=== PATIENT | female | born 1960 | race Caucasian/White ===

== ENCOUNTER 2018-10-28 16:21 | Emergency (ER) | payer MEDICAID ==
[2018-10-28] MEDS ORDERED: HYDROMORPHONE HCL INJ/PF 2 MG/ML AMPULE IV ONE (17:14)
[2018-10-28] MEDS ORDERED: ONDANSETRON HCL INJ/PF 4 MG/2 ML SDV IV ONE (17:14)
--- NOTE | 2018-10-28 18:21 | RADIOLOGY REPORT (SQ) ---
EXAM DESCRIPTION: CT HEAD WITHOUT COMPLETED DATE/TIME: 10/28/2018 6:13 pm REASON FOR STUDY: fall COMPARISON: None. TECHNIQUE: Axial images acquired through the brain without intravenous contrast. Images reviewed wi th bone, brain and subdural windows. Images stored on PACS. All CT scanners at this facility use dose modulation, iterative reconstruction, and/or weight based d osing when appropriate to reduce radiation dose to as low as reasonably achievable (ALARA). [facility]: Dose Right [facility]: CareDose [facility]: Dose Right [facility]: Teradose 4D [facility]: Bioenvision RADIATION DOSE: CT Rad equipment meets quality standard of care and radiation dose reduction techniq ues were employed. CTDIvol: 53.2 mGy. DLP: 964 mGy-cm. mGy. LIMITATIONS: None. FINDINGS: VENTRICLES: Normal size and contour. CEREBRUM: No masses. No hemorrhage. No midline shift. No evidence for acute infarction. Normal gra y/white matter differentiation. No areas of low density in the white matter. CEREBELLUM: No masses. No hemorrhage. No alteration of density. No evidence for acute infarction. EXTRAAXIAL SPACES: No fluid collections. No masses. ORBITS AND GLOBE: No intra- or extraconal masses. Normal contour of globe without masses. CALVARIUM: No fracture. PARANASAL SINUSES: Chronic ethmoid and frontal sinus disease. SOFT TISSUES: No mass or hematoma. OTHER: No other significant finding. IMPRESSION: NORMAL BRAIN CT WITHOUT CONTRAST. EVIDENCE OF ACUTE STROKE: NO. COMMENT: Quality ID # 436: Final reports with documentation of one or more dose reduction techniques (e.g., Automated exposure control, adjustment of the mA and/or kV according to patient size, use of iterative reconstruction technique) TECHNICAL DOCUMENTATION: JOB ID: [id number] 1964 [employer]- All Rights Reserved Reading location - IP/workstation name: [email or web address]
--- NOTE | 2018-10-28 18:28 | RADIOLOGY REPORT (SQ) ---
EXAM DESCRIPTION: CT CERVICAL SPINE WITHOUT COMPLETED DATE/TIME: 10/28/2018 6:13 pm REASON FOR STUDY: fall COMPARISON: None. TECHNIQUE: Axial images acquired through the cervical spine without intravenous contrast. Images re viewed with lung, soft tissue and bone windows. Reconstructed coronal and sagittal MPR images review ed. Images stored on PACS. All CT scanners at this facility use dose modulation, iterative reconstruction, and/or weight based d osing when appropriate to reduce radiation dose to as low as reasonably achievable (ALARA). [facility]: Dose Right [facility]: CareDose [facility]: Dose Right [facility]: Teradose 4D [facility]: Smart Sci[employer] RADIATION DOSE: CT Rad equipment meets quality standard of care and radiation dose reduction techniq ues were employed. CTDIvol: 16.9 mGy. DLP: 357 mGy-cm. mGy. LIMITATIONS: None. FINDINGS: ALIGNMENT: Anatomic. MINERALIZATION: Normal. VERTEBRAL BODIES: No fractures or dislocation. DISCS: No significant disc disease. FACETS, LATERAL MASSES, POSTERIOR ELEMENTS: No fractures. No dislocation. No acute findings. HARDWARE: None in the spine. VISUALIZED RIBS: No fractures. LUNG APICES AND SOFT TISSUES: No significant or acute findings. OTHER: No other significant finding. IMPRESSION: NO ACUTE OR SIGNIFICANT FINDINGS IN THE CERVICAL SPINE. TECHNICAL DOCUMENTATION: JOB ID: [id number] Quality ID # [id number]: Final reports with documentation of one or more dose reduction techniques (e.g., Au tomated exposure control, adjustment of the mA and/or kV according to patient size, use of iterative reconstruction technique) 2010 [employer]- All Rights Reserved Reading location - IP/workstation name: [email or web address]
--- NOTE | 2018-10-28 18:31 | RADIOLOGY REPORT (SQ) ---
EXAM DESCRIPTION: CT LUMBAR SPINE WITHOUT COMPLETED DATE/TIME: 10/28/2018 6:13 pm REASON FOR STUDY: fall COMPARISON: None. TECHNIQUE: Axial images acquired through the lumbar spine without intravenous contrast. Images revi ewed with lung, soft tissue and bone windows. Reconstructed coronal and sagittal MPR images reviewed . All images stored on PACS. All CT scanners at this facility use dose modulation, iterative reconstruction, and/or weight based d osing when appropriate to reduce radiation dose to as low as reasonably achievable (ALARA). [facility]: Dose Right [facility]: CareDose [facility]: Dose Right [facility]: Teradose 4D [facility]: FlexEl RADIATION DOSE: mGy. LIMITATIONS: None. FINDINGS: SEGMENTATION: Normal. No transitional anatomy. ALIGNMENT: Normal. VERTEBRAL BODIES: No fractures. No dislocation. No acute findings. DISCS: Degenerative disc disease with reactive endplate changes L4-5. Spinal stenosis. PEDICLES, TRANSVERSE PROCESSES: No fractures. No dislocation. No acute findings. FACETS, POSTERIOR ELEMENTS: No fractures. No dislocation. No spinal stenosis. HARDWARE: None in the spine. VISUALIZED RIBS: No fractures. SOFT TISSUES: No significant or acute finding in adjacent soft tissues. OTHER: No other significant finding. IMPRESSION: Degenerative disc disease L4-5 with spinal stenosis. No acute findings. TECHNICAL DOCUMENTATION: JOB ID: [id number] Quality ID # 436: Final reports with documentation of one or more dose reduction techniques (e.g., Au tomated exposure control, adjustment of the mA and/or kV according to patient size, use of iterative reconstruction technique) 2010 [employer]- All Rights Reserved Reading location - IP/workstation name: [email or web address]
--- NOTE | 2018-10-28 18:33 | RADIOLOGY REPORT (SQ) ---
EXAM DESCRIPTION: CT CHEST WITHOUT COMPLETED DATE/TIME: 10/28/2018 6:13 pm REASON FOR STUDY: fall COMPARISON: None. TECHNIQUE: CT scan performed of the chest without intravenous contrast. Images reviewed with lung, soft tissue and bone windows. Reconstructed coronal and sagittal MPR images reviewed. All images st ored on PACS. All CT scanners at this facility use dose modulation, iterative reconstruction, and/or weight based d osing when appropriate to reduce radiation dose to as low as reasonably achievable (ALARA). [facility]: Dose Right [facility]: CareDose [facility]: Dose Right [facility]: Teradose 4D [facility]: Smart [employer] RADIATION DOSE: CT Rad equipment meets quality standard of care and radiation dose reduction techniq ues were employed. CTDIvol: 14.4 mGy. DLP: 579 mGy-cm. mGy. LIMITATIONS: No technical limitations. FINDINGS: LUNGS AND PLEURA: No masses, infiltrates, or pneumothorax. No pleural effusions or pleura l calcifications. HILAR AND MEDIASTINAL STRUCTURES: No identified masses or abnormal nodes. No obvious aneurysm. HEART AND VASCULAR STRUCTURES: No aneurysm. No pericardial effusion. UPPER ABDOMEN: No significant findings. Limited exam. THYROID AND OTHER SOFT TISSUES: No masses. No adenopathy. BONES: No significant finding. HARDWARE: None in the chest. OTHER: No other significant findings. IMPRESSION: NO SIGNIFICANT FINDING ON NON-CONTRASTED CHEST CT. TECHNICAL DOCUMENTATION: JOB ID: [id number] Quality ID # 436: Final reports with documentation of one or more dose reduction techniques (e.g., Au tomated exposure control, adjustment of the mA and/or kV according to patient size, use of iterative reconstruction technique) 2010 [employer]- All Rights Reserved Reading location - IP/workstation name: [email or web address]
--- NOTE | 2018-10-28 18:34 | RADIOLOGY REPORT (SQ) ---
EXAM DESCRIPTION: KNEE LEFT 3 VIEWS COMPLETED DATE/TIME: 10/28/2018 6:25 pm REASON FOR STUDY: fall COMPARISON: None. NUMBER OF VIEWS: Three views. TECHNIQUE: AP, lateral, and sunrise patella radiographic images acquired of the left knee. LIMITATIONS: None. FINDINGS: MINERALIZATION: Normal. BONES: No acute fracture. Knee replacement. JOINT: No effusion. SOFT TISSUES: No soft tissue swelling. No radio-opaque foreign body. OTHER: No other significant finding. IMPRESSION: No acute fracture. Knee replacement. TECHNICAL DOCUMENTATION: JOB ID: [id number] [employer]- All Rights Reserved Reading location - IP/workstation name: [email or web address]
--- NOTE | 2018-10-28 18:35 | RADIOLOGY REPORT (SQ) ---
EXAM DESCRIPTION: SHOULDER LEFT 2 OR MORE VIEWS COMPLETED DATE/TIME: 10/28/2018 6:25 pm REASON FOR STUDY: fall COMPARISON: None. NUMBER OF VIEWS: Three views. TECHNIQUE: Internal rotation, external rotation, and Y view images acquired of the left shoulder. LIMITATIONS: None. FINDINGS: MINERALIZATION: Osteopenia. BONES: No acute fracture or dislocation. No worrisome bone lesions. JOINTS: No dislocation. VISUALIZED LUNGS AND RIBS: No pneumothorax. No rib fracture. SOFT TISSUES: No radiopaque foreign body. OTHER: No other significant finding. IMPRESSION: NEGATIVE STUDY OF THE LEFT SHOULDER. NO RADIOGRAPHIC EVIDENCE OF ACUTE INJURY. TECHNICAL DOCUMENTATION: JOB ID: [id number] [employer]- All Rights Reserved Reading location - IP/workstation name: [email or web address]
--- NOTE | 2018-10-28 18:36 | RADIOLOGY REPORT (SQ) ---
EXAM DESCRIPTION: HIP LEFT AP/LATERAL COMPLETED DATE/TIME: 10/28/2018 6:25 pm REASON FOR STUDY: fall COMPARISON: None. NUMBER OF VIEWS: Two views. TECHNIQUE: AP pelvis and additional frog-leg view of the left hip. LIMITATIONS: None. FINDINGS: MINERALIZATION: Osteopenia. LEFT HIP: Degenerative changes. No acute fracture. RIGHT HIP: Hip replacement. PUBIS AND ISCHIUM: No fracture. PELVIS: No fracture. SACRUM: No fracture or dislocation. No worrisome bone lesions. LOWER LUMBAR SPINE: Degenerative disc disease. SOFT TISSUES: No findings. OTHER: No other significant finding. IMPRESSION: No acute findings. TECHNICAL DOCUMENTATION: JOB ID: [id number] [employer]- All Rights Reserved Reading location - IP/workstation name: [email or web address]
--- NOTE | 2018-10-28 19:03 | ER Document Report ---
ED Fall - General Chief Complaint: Fall Injury Stated Complaint: FALL/LEFT SIDE BODY PAIN Time Seen by Provider: 10/28/18 16:49 Mode of Arrival: Ambulatory Information source: Patient, Relative Notes: Patient is a well-nourished well-developed 58-year-old female comes emergency room after sustaining a fall on . Patient was down from [place] helping her son move into his new handicap apartment and she was helping offload boxes from a trailer and as she went to the back and the front and came up and she went to the ground which was about 4 feet above and landed on her left side of her body. Part of her fall was broken by her son's friend although she is unsure if she has had loss of consciousness as are the 2 witnesses there. Patient is complaining of headache neck pain left shoulder pain mid thoracic and lumbar tenderness and pain difficulty walking left hip pain and left knee pain. Patient states that she has a high tolerance to pain but she is getting more and more difficult to walk and to go from sitting to standing. She is also having a hard time using her left arm because of the discomfort and pain. She has a history of having bilateral knee replacements and a right hip replacement. She states as son also states that when she broke her right hip she worked for 19 days on it before they realized it was fractured. Then she had to get into the pain and have it fixed. So as stated patient cannot deny loss of consciousness and increasing headache. She has a history of hypertension A. fib congestive heart failure. She does not take any blood thinners. She continues to smoke a half a pack cigarettes a day. TRAVEL OUTSIDE OF THE [place] IN LAST 30 DAYS: No - HPI Occurred: Last week Where: Home Context: Fell from height Associated symptoms: Lost consciousness, Dazed/confused, Difficulty breathing, Difficulty walking Location of injury/pain: Hip, Knee, Neck, Shoulder, Trunk, Upper extremity, Lower extremity Quality of pain: Achy, Cramping, Pressure, Sharp, Throbbing Severity: Moderate Pain Level: 3 - Related data Allergies/Adverse Reactions: bupropion [From Wellbutrin] Allergy (Verified 10/28/18 16:26) meperidine [From Demerol] Allergy (Verified 10/28/18 16:26) morphine Allergy (Verified 10/28/18 16:26) Past Medical History - General Information source: Patient, Relative - Social History Smoking Status: Current Every Day Smoker Cigarette use (# per day): Yes - 1/4-1/2 pack a day Chew tobacco use (# tins/day): No Smoking Education Provided: Yes Frequency of alcohol use: None Drug Abuse: None Lives with: Family Family History: Reviewed & Not Pertinent Patient has suicidal ideation: No Patient has homicidal ideation: No - Past Medical History Cardiac Medical History: Reports: Hx Atrial Fibrillation, Hx Congestive Heart Failure, Hx Hypercholesterolemia, Hx Hypertension Renal/ Medical History: Denies: Hx Peritoneal Dialysis GI Medical History: Reports: Hx Gastroesophageal Reflux Disease Past Surgical History: Reports: Hx Appendectomy, Hx Cardiac Catheterization, Hx Cholecystectomy, Hx Hysterectomy, Hx Orthopedic Surgery - bilateral knee replacements, Rt hip, Hx Tonsillectomy Review of Systems - Review of Systems Constitutional: No symptoms reported EENT: No symptoms reported Cardiovascular: No symptoms reported Respiratory: See HPI, Hurts to breathe, Short of breath Gastrointestinal: No symptoms reported Genitourinary: No symptoms reported Female Genitourinary: No symptoms reported Musculoskeletal: No symptoms reported, See HPI, Back pain, Joint pain, Joint swelling, Muscle pain, Neck pain Skin: No symptoms reported Hematologic/Lymphatic: No symptoms reported Neurological/Psychological: Lost consciousness -: Yes All other systems reviewed and negative Physical Exam - Vital signs Vitals: Temp Pulse Resp BP Pulse Ox 97.9 F 80 16 123/67 100 10/28/18 16:28 10/28/18 16:28 10/28/18 16:28 10/28/18 16:28 10/28/18 16:28 Interpretation: Normal - Notes Notes: PHYSICAL EXAMINATION: GENERAL: Patient is a well-nourished well-developed 58-year-old female who is in no apparent distress but is not noticeable pain and discomfort. Every movement is calculated secondary to causing her discomfort and pain. HEAD: Atraumatic, normocephalic. Examination of the head does not show any signs of hematomas or abrasions Pupils equal round and reactive to light, extraocular movements intact, conjunctiva are normal. ENT: Nares patent, oropharynx clear without exudates. Moist mucous membranes. NECK: Examination patient's cervical spine shows she has decreased range of motion in all planes of. This is apparently due to discomfort and pain. She generally moves her neck from flexion to extension and gets almost a full range of motion. As far as rotation goes she has again slow motion to get to each side however she almost gets to full range of motion. Palpation of the cervical spine shows some moderate tenderness in the lower portion posteriorly. LUNGS: Breath sounds clear to auscultation bilaterally and equal. No wheezes rales or rhonchi. HEART: Irregular rate and rhythm without murmurs ABDOMEN: Soft, nontender, nondistended abdomen. No guarding, no rebound. No masses appreciated. Female : deferred Musculoskeletal: Examination of patient's left upper arm shows reproducible tenderness palpation on the anterior portion around the rotator cuff area. Patient is having difficulty raising the shoulder with active range of motion. With passive range of motion is much easier but still somewhat uncomfortable. She also has some notable spasms along the scapular border on the left side. Examination of the skin does not show any signs of abrasions or hematomas and limited amount of swelling if any. Although this is been 5 or 6 days ago. There does not appear to be any type of deformity. The clavicle also appears normal. There is some increased tenderness with some swelling around the AC joint area and very tender to palpate there. 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 She has good cap refill in the nails of that left hand. She has a good brachial pulse as well. The examination of the chest and back shows that she has reproducible tenderness mid thoracic to lower lumbar. Very tender to palpate very cautious with movement in the area. There also appear to be some enoc-vertebral spasms throughout the thoracic and lumbar area. Patient has decreased range of motion with flexion and will extension in that area. DTRs are limited secondary to her pain and discomfort in her having replaced knees. She states that she has had loss of feeling in the knees since the surgeries. She has good flexion extension at the ankles and feet. She is good dorsalis pedal pulses. The left groin is concerning for increased tenderness to palpation in the groin area. There is no shortening or outward or inward rotation of the leg on examination. She has a good femoral pulse. She has difficulty with bending at the knee which is a little new to her since the fall. Again she has good popliteal pulses in the area. The left rib area also is noted to be very tender to palpation. Increased tenderness and pain when deep inspiration is induced. NEUROLOGICAL: Normal speech, normal gait. Normal sensory, motor exams PSYCH: Normal mood, normal affect. SKIN: Warm, Dry, normal turgor, no rashes or lesions noted. Course - Vital Signs Vital signs: Temp Pulse Resp BP Pulse Ox 97.9 F 80 16 123/67 100 10/28/18 16:28 10/28/18 16:28 10/28/18 16:28 10/28/18 16:28 10/28/18 16:28 Procedures - Immobilization Left Knee Pre-Proc Neuro Vasc Exam: Normal Immobilizer type: Knee immobilizer, Sling Performed by: PCT Post-Proc Neuro Vasc Exam: Normal, Unchanged from pre-exam Alignment checked and good: Yes Notes: 10/28/18 19:57 Patient is agreed to use her walker at home and she will use knee immobilizer when ambulatory. She is in a sling in her arm only when she is sitting she will have to use it with a walker. Discharge - Discharge Clinical Impression: Internal derangement of left knee, Lumbosacral contusion Contusion of left shoulder Qualifiers: Encounter type: initial encounter Qualified Code(s): S40.012A - Contusion of left shoulder, initial encounter Left shoulder strain Qualifiers: Encounter type: initial encounter Qualified Code(s): S46.912A - Strain of unspecified muscle, fascia and tendon at shoulder and upper arm level, left arm , initial encounter Strain of left knee Qualifiers: Encounter type: initial encounter Qualified Code(s): S86.912A - Strain of unspecified muscle(s) and tendon(s) at lower leg level, left leg, initial encounter Concussion Qualifiers: Encounter type: initial encounter Loss of consciousness presence/duration: without LOC Qualified Code(s): S06.0X0A - Concussion without loss of consciousness, initial encounter Strain of left hip Qualifiers: Encounter type: initial encounter Qualified Code(s): S76.012A - Strain of muscle, fascia and tendon of left hip, initial encounter Thoracic myofascial strain Qualifiers: Encounter type: initial encounter Qualified Code(s): S29.019A - Strain of muscle and tendon of unspecified wall of thorax, initial encounter Condition: Stable Disposition: HOME, SELF-CARE Instructions: Concussion ([facility]), Post-Concussion Syndrome ([facility]), Shoulder Injury ([facility]), Suspected Internal Knee Injury ([facility]), Sprained Knee ([facility]) Additional Instructions: As we discussed you are going to hurt for the next several days because the type fall the sustained. All of your diagnostic CTs and x-rays were negative for any acute findings of fractures. This however does not exclude the possibilities of ligament tears and strains like rotator cuff and need internal derangement and hip strain or tendon malfunction. As we talked he can continue with moist heat or ice or alternating the 2. We will put you on Percocet where you can take half a pill to 1 full pill to 1-1/[address]. [address] you on some meloxicam once a day and when you have time contact your physician to get more clearance on they approve it. This is have the least side effects and possible causes of bleeding than anything else besides Tylenol. I will place you on a muscle relaxer as well. Should you have any concerns or problems or you cannot get into any of the clinics return to ER for recheck. Prescriptions: Cyclobenzaprine HCl [Flexeril 10 mg Tablet] 10 mg PO TIDP PRN #20 tablet PRN Reason: Meloxicam [Mobic] 7.5 mg PO ASDIR PRN #20 tablet PRN Reason: Oxycodone HCl/Acetaminophen [Percocet 5-325 mg Tablet] 1 - 2 tab PO ASDIR PRN # 15 tablet PRN Reason: Referrals: [facility] [NO LOCAL MD] - Follow up as needed MARK SNOW DO [ACTIVE STAFF] - Follow up as needed
[2018-10-28 20:25] VITALS: BP 125/74
== END 2018-10-28 20:40 | disposition home or self-care (01) ==
LOC: ER 16:21
DX: S06.0X0A Concussion without loss of consciousness, initial encounter (principal); S76.012A Strain of muscle, fascia and tendon of left hip, initial encounter; S29.019A Strain of muscle and tendon of unspecified wall of thorax, initial encounter; S40.012A Contusion of left shoulder, initial encounter; S46.912A Strain of unspecified muscle, fascia and tendon at shoulder and upper arm level, left arm, initial encounter; S86.912A Strain of unspecified muscle(s) and tendon(s) at lower leg level, left leg, initial encounter; M79.10 Myalgia, unspecified site; M54.6 Pain in thoracic spine; F17.210 Nicotine dependence, cigarettes, uncomplicated; W17.89XA Other fall from one level to another, initial encounter; Y93.E6 Activity, residential relocation; Y92.009 Unspecified place in unspecified non-institutional (private) residence as the place of occurrence of the external cause; I48.91 Unspecified atrial fibrillation; I50.9 Heart failure, unspecified; I11.0 Hypertensive heart disease with heart failure; Z96.653 Presence of artificial knee joint, bilateral; Z96.641 Presence of right artificial hip joint
CPT/HCPCS: 99284; 96374; 96375; 73502; 73562; 73030; 70450; 71250; 72125; 72131; L1830; J1170; J2405

== ENCOUNTER → 2019-07-23 | Outpatient (CLI) | payer MEDICAID ==
--- NOTE | 2019-07-23 15:24 | RADIOLOGY REPORT (SQ) ---
EXAM DESCRIPTION: NM 3 PHASE BONE SCAN COMPLETED DATE/TIME: 07/23/2019 2:31 pm REASON FOR STUDY: S72.92XA UNSPECIFIED FRACTURE OF LEFT FEMUR, INITIAL ENCOUNTER FOR CLOSED F S72.92 XA UNSP FRACTURE OF LEFT FEMUR, INIT ENCNTR FOR CLOSED COMPARISON: Left knee films outside institution 06/29/2019, , left hip films 06/28/2019 Left hip films 10/28/2018 [facility] RADIONUCLIDE AND DOSE: 21.4 millicuries Tc99m MDP. The route of agent administration: Intravenous. ADDITIONAL DRUGS AND DOSES: None. TECHNIQUE: Following injection of the radiopharmaceutical, serial blood flow images acquired. Equil ibrium blood pool images then acquired. Routine delayed images at 3 hours acquired of the areas of c linical concern with additional focused images as needed. AREA OF INTEREST: Bilateral hips on blood flow images, bilateral hips knees and ankles on delayed will ges LIMITATIONS: No recent radiographs of the pelvis or left hip are available for comparison FINDINGS: VASCULAR FLOW IMAGES: Increased blood flow to the left hip BLOOD POOL IMAGES: Asymmetric increased blood pool activity left hip BONES: Delay images of the pelvis demonstrated bare area over the right hip from old right hip replac ement. No surrounding MDP activity worrisome for right hip prosthesis loosening. Delayed imaging of the pelvis demonstrates markedly increased uptake over the left femur intertrochan teric region, and mild increased uptake over the left femoral head/acetabulum and proximal left femor al diaphysis. These areas have increased activity on blood flow and blood pool images. Patient has undergone left hip lag screw and long intramedullary nail placement for intertrochanteric fracture on 06/28/2019 with fluoroscopic imaging. Delayed images over the remainder of the lower extremities demonstrate mild increased uptake along th e left patella and right medial tibial plateau adjacent to bilateral knee replacements. There is alisa y mild increased uptake at the left tibiotalar joint and right tibiotalar joint possibly from osteoar thritis. IMPRESSION: Left Hip is positive on three-phase bone scan, with increased uptake at the left proxima l femur fracture site. COMMENT: Quality measure 147: Current bone scan is compared with any available plain radiographs, p rior bone scans, and CT/MRI. TECHNICAL DOCUMENTATION: JOB ID: [id number] [employer]- All Rights Reserved Reading location - IP/workstation name: [email or web address]
== END ==
LOC: RAD 10:26
PROVIDERS: ATTEND Orthopaedic Surgery
DX: S72.92XA Unspecified fracture of left femur, initial encounter for closed fracture (principal); X58.XXXA Exposure to other specified factors, initial encounter
CPT/HCPCS: 78315; A9561; Q9969